=== PATIENT | male | born 1985 | race Caucasian/White ===

== ENCOUNTER 2024-09-26 06:59 | Emergency (ER) | payer OTHER ==
[~2024-09-26] VITALS: Ht 200.7 cm; Wt 145.1 kg
[2024-09-26 07:04] VITALS: BP 143/80; PULSE 66; RESP 18; TEMP 98.6; O2SAT 100
[2024-09-26] MEDS ORDERED: ROBAXIN PO ONE (07:42)
[2024-09-26] MEDS ORDERED: TORADOL ONE (07:42)
[2024-09-26] MEDS: ROBAXIN PO STA (07:47)
[2024-09-26] MEDS: TORADOL IM STA (07:47)
[2024-09-26 08:17] VITALS: BP 110/69; PULSE 60; RESP 18; O2SAT 91
[2024-09-26] MEDS ORDERED: METH-622 PO (08:19)
[2024-09-26] MEDS ORDERED: ETOD-80 PO (08:19)
== END 2024-09-26 08:23 | disposition home or self-care (01) ==
LOC: ER 06:59
DX: S33.5XXA Sprain of ligaments of lumbar spine, initial encounter (principal); X58.XXXA Exposure to other specified factors, initial encounter; Y93.89 Activity, other specified; Y92.89 Other specified places as the place of occurrence of the external cause; Y99.8 Other external cause status
CPT/HCPCS: 99285; 72131; 96372; J1885